=== PATIENT | female | born 1965 | race Caucasian/White ===

== ENCOUNTER 2020-08-29 10:44 | Outpatient (REF) | payer OTHER, SELFPAY ==
[2020-08-29 13:07] LABS: Hematocrit 39.2 % (37-47); Hemoglobin 13.2 g/dl (12.0-16.0); Mean Corpuscular HGB Conc 33.7 g/dl (31.0-35.0); Mean Corpuscular Hemoglobin 29.7 pg (27.0-33.0); Mean Corpuscular Volume 88.3 fL (80-98); Mean Platelet Volume 10.3 fL (9.4-12.3); Platelet Count 275 X10*3/uL (160-400); Red Blood Count 4.44 X10*6/uL (4.20-5.50); Red Cell Distribution Width 12.3 % (11.0-16.0); White Blood Count 5.4 X10*3/uL (4.8-10.8)
[2020-08-30 13:57] LABS: Immunoglobulin A 137 mg/dL (47-310)
== END 2020-08-29 10:45 | disposition home or self-care (01) ==
LOC: HO.MANLDS 10:44
PROVIDERS: PCP Internal Medicine; Visit Provider Internal Medicine
DX: J01.91 Acute recurrent sinusitis, unspecified (principal)
CPT/HCPCS: 36415; 82784; 85027

== ENCOUNTER 2020-11-02 09:39 | Outpatient (REF) | payer OTHER, SELFPAY ==
--- NOTE | ~2020-11-02 | XR_ITS ---
EXAMINATION: XR SINUSES CLINICAL INFORMATION: Chronic maxillary sinusitis COMPARISON: None TECHNIQUE: The sinuses are imaged in 4 views. FINDINGS: The right frontal sinus is hypoplastic/aplastic. The sinuses are otherwise well-aerated and clear. There is no air-fluid level, mucosal thickening, or polypoid mass. No sinus wall thickening or sclerosis or visible destructive process. Visualized nasopharynx unremarkable. XR/XR sinus min 3V IMPRESSION: Unremarkable examination.
== END 2020-11-02 09:40 | disposition home or self-care (01) ==
LOC: HO.XRAY 09:39
PROVIDERS: PCP Internal Medicine; Visit Provider Physician Assistant
DX: J32.0 Chronic maxillary sinusitis (principal)
CPT/HCPCS: 70220

== ENCOUNTER 2020-11-21 10:07 | Outpatient (REF) | payer OTHER, SELFPAY | END 2020-11-21 10:08 | disposition home or self-care (01) | LOC: HO.MANLNP 10:07 | PROVIDERS: PCP Internal Medicine; Visit Provider Internal Medicine | DX: R30.0 Dysuria (principal) | CPT/HCPCS: 87086 ==

== ENCOUNTER 2020-12-04 11:00 | Outpatient (REF) | payer OTHER, SELFPAY ==
--- NOTE | ~2020-12-04 | XR_ITS ---
EXAMINATION: XR BILATERAL HIPS WITH AP PELVIS CLINICAL INFORMATION: Bilateral hip joint pain COMPARISON: None TECHNIQUE: AP view of the pelvis and AP and frog lateral views of each hip were obtained. FINDINGS: Overall mineralization is normal. There is no fracture or dislocation. The hip joint spaces are preserved and symmetric, without arthritic change. There is a lucent lesion of bone in the right femoral metaphysis near the lesser tuberosity. This demonstrates a partially sclerotic metastases somewhat indistinct margin. No expansion or periosteal reaction is appreciated. XR/XR hips YARI min 3V IMPRESSION: Negative examination of the hips. Nonspecific bone lesion in the proximal right femoral metaphysis, possibly representing an enchondroma or bone cyst. Further evaluation by CT or MRI is recommended.
== END 2020-12-04 11:01 | disposition home or self-care (01) ==
LOC: HO.XRAY 11:00
PROVIDERS: PCP Internal Medicine; Visit Provider Internal Medicine
DX: M25.551 Pain in right hip (principal); M25.552 Pain in left hip
CPT/HCPCS: 73522

== ENCOUNTER 2021-03-01 11:21 | Outpatient (REF) | payer OTHER, SELFPAY ==
--- NOTE | ~2021-03-01 | XR_ITS ---
EXAMINATION: XR HUMERUS, RIGHT CLINICAL INFORMATION: Pain COMPARISON: None TECHNIQUE: AP and lateral views of the right humerus. FINDINGS: The bones and soft tissues are normal. No fracture. Imaged portions of the shoulder and elbow are unremarkable. XR/XR humerus RT IMPRESSION: Normal right humerus.
== END 2021-03-01 11:22 | disposition home or self-care (01) ==
LOC: HO.XRAY 11:21
PROVIDERS: PCP Internal Medicine; Visit Provider Internal Medicine
DX: M79.601 Pain in right arm (principal)
CPT/HCPCS: 73060

== ENCOUNTER 2021-11-06 14:38 | Outpatient (REF) | payer OTHER, SELFPAY ==
--- NOTE | ~2021-11-06 | CT_ITS ---
EXAMINATION: CT SINUS WITHOUT CONTRAST CLINICAL INFORMATION: Acute sinusitis. COMPARISON: None TECHNIQUE: Axial 2 mm thin and reformatted 2 mm thin sagittal and coronal images of sinuses were obtained. This CT examination was performed using dose optimization techniques as appropriate, variously including the following: *Automated exposure control *Adjustment of mA and/or kV according to patient size (this includes techniques or standardized protocols for targeted exams where dose is matched to indication/reason for exam; i.e. extremities or head) *Use of iterative reconstruction technique DLP: 100 mGy-cm FINDINGS: FRONTAL SINUSES AND DRAINAGE PATHWAYS: Normal. MAXILLARY SINUSES AND DRAINAGE PATHWAYS: Normal. The infundibula are patent. ETHMOID SINUSES: Normal. The ethmoid roofs are symmetric, with olfactory fossa depth of 0.7 cm on the right and 0.7 cm on the left. SPHENOID SINUSES AND DRAINAGE PATHWAYS: Normal. The sphenoid ostia are patent. The carotid canals are covered by bone. NASAL CAVITY/NASOPHARYNX: The nasal cavity is clear. There is mild nasal septal deviation/spurring to the left. The nasopharynx is symmetric. ADDITIONAL RELEVANT FINDINGS: No periapical disease is seen. The TMJs articulate normally. The orbits and skull base soft tissues are unremarkable. The middle ear cavities and mastoid air cells are clear. Limited evaluation demonstrates no acute intracranial findings. CT/CT sinus wo con IMPRESSION: Mild deviation of the nasal septum to the left. The nasal cavity and nasopharyngeal airway is widely patent. The paranasal sinuses are clear.
== END 2021-11-06 14:39 | disposition home or self-care (01) ==
LOC: HO.CT 14:38
PROVIDERS: PCP Internal Medicine; Visit Provider Internal Medicine
DX: J01.90 Acute sinusitis, unspecified (principal)
CPT/HCPCS: 70486

== ENCOUNTER 2022-10-07 12:11 | Outpatient (REF) | payer OTHER, SELFPAY ==
--- NOTE | ~2022-10-07 | XR_ITS ---
EXAMINATION: XR WRIST, LEFT CLINICAL INFORMATION: Tenosynovitis. Palpable lump adjacent to ulnar styloid. COMPARISON: None available. TECHNIQUE: PA, lateral, and oblique views of the left wrist. FINDINGS: The bones and soft tissues are normal. No fracture. Alignment is anatomic with normal joint spaces. No erosions or abnormal soft tissue calcifications. XR/XR wrist LT min 3V IMPRESSION: Normal left wrist.
== END 2022-10-07 12:12 | disposition home or self-care (01) ==
LOC: HO.XRAY 12:11
PROVIDERS: PCP Internal Medicine; Visit Provider Physician Assistant
DX: M65.4 Radial styloid tenosynovitis [de Quervain] (principal)
CPT/HCPCS: 73110

== ENCOUNTER 2023-07-30 07:55 | Outpatient (REF) | payer OTHER, SELFPAY ==
[2023-07-30 13:34] LABS: MANUAL DIFF FLAG NO
[2023-07-30 13:51] LABS: Basophils Percent Auto 0.5 % (0-2); Eosinophils Absolute Auto 0.1 X10*3/uL (0.0-0.4); Eosinophils Percent Auto 1.6 % (0-4); Hematocrit 40.4 % (37.0-47.0); Hemoglobin 13.3 g/dl (12.0-16.0); Imm Gran Abs Auto 0.01 X10*3/uL (0.00-0.03); Imm Gran Pct Auto 0.3 % (0.0-0.4); Lymphocytes Absolute Auto 1.3 X10*3/uL (1.2-4.9); Lymphocytes Percent Auto 33.6 % (20-40); Mean Corpuscular HGB Conc 32.9 g/dl (31.0-35.0); Mean Corpuscular Hemoglobin 29.3 pg (27.0-33.0); Monocytes Absolute Auto 0.2 X10*3/uL (0.1-1.2); Monocytes Percent Auto 5.6 % (2-11); Neutrophils Absolute Auto 2.2 x10*3/uL (2.0-8.3); Neutrophils Percent Auto 58.4 % (45-73); Platelet Count 248 X10*3/uL (160-400); Red Blood Count 4.54 X10*6/uL (4.20-5.50); Red Cell Distribution Width 12.2 % (11.0-16.0); White Blood Count 3.7 X10*3/uL (4.8-10.8)
[2023-07-30 14:20] LABS: Alanine Aminotransferase 33 U/L (0-31); Albumin Level 4.6 g/dL (3.5-5.0); Alkaline Phosphatase 67 U/L (39-117); Anion Gap 13 (12-20); Aspartate Amino Transferase 21 U/L (5-31); Bilirubin Total 0.9 mg/dL (0.0-1.0); Blood Urea Nitrogen 11 mg/dL (9-16); Calcium 9.8 mg/dL (8.4-10.2); Carbon Dioxide 28 mmol/L (22-29); Chloride 104 mmol/L (96-108); Cholesterol 202 mg/dL (<200); Estimated Glomerular Filt Rate > 60; Glucose Random 85 mg/dL (60-115); HDL Cholesterol 58 mg/dL (>40); LDL Cholesterol Calculated 118 mg/dL (<100); Potassium 3.8 mmol/L (3.3-5.1); Sodium 141 mmol/L (135-145); Triglycerides 132 mg/dL (<150)
[2023-07-30 14:35] LABS: Vitamin D 25-OH Total 34.2 ng/mL (>30)
== END 2023-07-30 07:56 | disposition home or self-care (01) ==
LOC: HO.MANLDS 07:55
PROVIDERS: Visit Provider Internal Medicine
DX: E78.00 Pure hypercholesterolemia, unspecified (principal)
CPT/HCPCS: 36415; 80053; 80061; 82306; 85025

== ENCOUNTER 2024-03-10 13:23 | Outpatient (REF) | payer OTHER, SELFPAY ==
--- NOTE | ~2024-03-10 | XR_ITS ---
EXAMINATION: XR CERVICAL SPINE CLINICAL INFORMATION: Cervalgia. COMPARISON: MRI cervical spine 07/01/2019. TECHNIQUE: AP, open-mouth, lateral radiographs of the cervical spine. FINDINGS: Lateral view demonstrates the spine from craniocervical junction to the level of T1. Vertebral body height and alignment are normal in appearance. No facet arthropathic changes are identified. Visualized lung apices are clear. Incidental note is made of focal opacification in the region of the ligamentum nuchae at the level of C4-C5. Minimal anterior endplate osteophytosis is present at C4-C5, C5-C6 and C6-C7. No intervertebral disc space narrowing or definitive vertebral joint osteophytosis noted at these levels. No prevertebral soft tissue inflammatory changes. XR/XR cervical spine 3V IMPRESSION: Mild multilevel anterior endplate osteophytosis of the cervical spine consistent with underlying degenerative disc disease. Findings are grossly commensurate with the mild multilevel chronic spondylosis visualized to better advantage on the comparison MRI of the cervical spine 07/01/2019. Electronically signed by: Marc Montgomery MD 03/25/2024 01:54 PM EDT
== END 2024-03-10 13:24 | disposition home or self-care (01) ==
LOC: HO.XRAY 13:23
PROVIDERS: PCP Internal Medicine; Visit Provider Physician Assistant
DX: M54.2 Cervicalgia (principal)
CPT/HCPCS: 72040

== ENCOUNTER 2024-05-25 14:23 | Outpatient (REF) | payer OTHER, SELFPAY ==
[2024-05-25 18:44] LABS: Thyroid Stimulating Hormone 1.78 uIU/mL (0.32-4.0)
[2024-05-27 03:08] LABS: Triiodothyronine T3 Free 2.9 pg/mL (2.3-4.2)
[2024-05-27 06:03] LABS: Thyroid Peroxidase Antibodies 1 IU/mL (<9)
== END 2024-05-25 14:24 | disposition home or self-care (01) ==
LOC: HO.MANLDS 14:23
PROVIDERS: Visit Provider Physician Assistant
DX: E06.9 Thyroiditis, unspecified (principal)
CPT/HCPCS: 36415; 84439; 84443; 84481; 86376

== ENCOUNTER 2025-01-11 12:56 | Outpatient (REF) | payer OTHER, SELFPAY ==
[2025-01-11 13:20] LABS: Appearance Urine Clear; Glucose Urine UA Negative (Negative); PH 8.0 (5.0-9.0); Specific Gravity - Urine <= 1.005 (1.005-1.025); UMIC TRIGGER UACC YES
[2025-01-11 13:40] LABS: UACC Culture Trigger YES
--- OUTSIDE RECORDS SUMMARY | 2025-01-11 13:52 | XMS_ITS | Data Portability ---
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 REVIEW OF PRIOR EXTERNAL NOTES/RESULTS, ORDERING OF TEST(S) CATEGORY 2. ASSESSMENT REQUIRING INDEPENDENT HISTORIAN(S) INCLUDE WHO THE HISTORIAN IS AND RELATION TO PT AND WHY PT IS UNABLE TO GIVE COMPLETE HISTORY ELEMENT 3: RISK (LOW) RISK OF COMPLICATIONS AND/OR MORBIDITY OR MORTALITY OF PATIENT MANAGEMENT PROVIDER MUST THOROUGHLY DOCUMENT ALL OF THE ELEMENTS COVERED Not available 11/02/2021 11:12:42 02/13/2022 02/13/2022 [id number] [place] [id number] (MORTAR WORKER) MDM MODERATE MUST MEET 2 OUT OF 3 ELEMENTS: PROBLEMS, DATA OR RISK ELEMENT 1: PROBLEMS ADDRESSED 1 OR MORE CHRONIC ILLNESS WITH EXACERBATION OR 2 OR MORE STABLE CHRONIC ILLNESSES OR 1 UNDIAGNOSED NEW PROBLEM OR 1 ACUTE ILLNESS W/SYMPTOMS OR 1 ACUTE COMPLICATED INJURY ELEMENT 2: DATA MUST MEET 1 OF 3 CATEGORIES CATEGORY 1: REVIEW OF PRIOR EXTERNAL NOTES, REVIEW OF RESULTS, ORDERING OF EACH TEST, ASSESSMENT REQUIRING INDEPENDENT HISTORIAN OR CATEGORY 2: INDEPENDENT INTERPRETATION OF TESTS BY ANOTHER PHYSICIAN OR SPECIALIST OR CATEGORY 3: DISCUSSION OF MGT OR TEST INTERPRETATION W/EXTERNAL PHYSICIAN OR SPECIALIST ELEMENT 3: RISK RISK OF COMPLICATIONS AND/OR MORBIDITY OR MORTALITY OF PATIENT MANAGEMENT PROVIDER MUST THOROUGHLY DOCUMENT EACH ELEMENT THAT IS COVERED Not available 02/13/2022 15:31:02 03/04/2022 03/04/2022 [id number] [place] [id number]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 REVIEW OF PRIOR EXTERNAL NOTES/RESULTS, ORDERING OF TEST(S) CATEGORY 2. 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 REVIEW OF PRIOR EXTERNAL NOTES/RESULTS, ORDERING OF TEST(S) CATEGORY 2. ASSESSMENT REQUIRING INDEPENDENT HISTORIAN(S) INCLUDE WHO THE HISTORIAN IS AND RELATION TO PT AND WHY PT IS UNABLE TO GIVE COMPLETE HISTORY ELEMENT 3: RISK (LOW) RISK OF COMPLICATIONS AND/OR MORBIDITY OR MORTALITY OF PATIENT MANAGEMENT PROVIDER MUST THOROUGHLY DOCUMENT ALL OF THE ELEMENTS COVERED Not available 06/03/2023 11:20:11 Plan of Treatment Reminders Order Date Submit Date Provider Last Modified By Organization Details Last Modified Time Details Appointments None recorded. Lab None recorded. Referral gastroenter ologist referral - hx of adenomatous polyps 2021 022 [email or web address] [address] [facility], [address] [facility], [place], [address], 08:40:03 Procedures None recorded. Surgeries None recorded. Imaging XR, wrist, 3 or more view 2022 023 [facility], [address] [place], [address], 3 08:31:21 CT, maxillofaci al, w/o contrast 2021 022 [facility], [address] [place], [address], 2 12:15:18 Medication Orders valacyclovi r 1 gram tablet 2021 022 [email or web address] [id number], [address] [place], [address], 4 18:29:29 Savella 12.5 mg (5)-25 mg(8)-50mg( 42) tablets in a dose pack 2021 022 SURINDER [id number], [address] [place], [address], 2 15:31:05 prednisone 20 mg tablet 2021 022 [id number], [address] [place], [address], 2 13:49:52 doxycycline hyclate 100 mg tablet 2021 022 [email or web address] [id number], [address] [place], [address], 2 14:20:00 Patient TargetsNo targets recorded. Patient Instructions Encounter Date Encounter Id Patient Instructions Last Modified By Organization Details Last Modified Time 11/02/2021 [id number] Acute Sinusitis: Care Instructions Not available 11/02/2021 11:15:12 03/04/2022 [id number] shingles: care instructions Not available 03/04/2022 11:19:38 Reason for Referral Brand Advocate Referral for Screening for malignant neoplasm of colon hx of adenomatous polyps Referring Physician: Demar Summers, Internal Medicine, Encounter Date: 02/13/2022 Results Created Date Observation Date Name Description Value Unit Range Abnormal Flag Note LastModifiedBy Organization Detail LastModifiedTime 11/08/1911/06/2021 CT, maxil lofac ial, w/o contr ast No observ ation record ed. [facility] (Medical Records) [address] [place], [address], 11/09/2021 10:03:59 10/15/19 23 10/07/2022 XR, wrist , 3 or more view No observ ation record ed. [email or web address] [facility] (Medical Records) [address] [place], [address], 10/15/2022 11:34:26 03/25/20 24 03/10/2024 XR, cervi grady spine , 2 or 3 view No observ [facility]ion [facility] ed. [facility] [address] [place], [address], 03/26/2024 08:46:20 06/04/20 24 06/04/2024 US, neck, soft tissu e No observ ation record ed. [facility] [address], [place], [address], 06/04/2024 08:51:25 06/17/20 24 06/17/2024 US, neck, soft tissu e No observ ation record ed. [facility] [address], [place], [address], 06/17/2024 13:38:45 10/07/19 25 10/04/2024 CT, heart , w/o contr ast, w/ coron haylie calci um score No observ ation record ed. [facility] [address] [facility] [address], [place], [address], 10/07/2024 20:34:57 Result Notes None recorded. Problems Name Problem SNOMED Code Status Onset Date Resolution Date Notes Provider Name and Address Organization Details Recorded Time Environme ntal allergy 374764691 Active 2018 Demar Summers DO [address] [place] [address], [address], [facility] 9 12:20:23 Congestio n of nasal sinus 14123459 Active 2021 Demar Summers DO [address] [place] [address], [address], [facility] 2 11:12:52 Acute sinusitis 02064428 Active 2021 Demar Summers DO [address] [place] [address], [address], [facility] 2 11:13:10 Conjuncti vitis of right eye caused by bacteria 677806618485 10175 Active 2021 Demar Summers DO [address] [place] [address], [address], [facility] 2 08:42:55 Hyperchol esterolem ia 56318201 Active 2021 Demar Summers DO [address] [place] [address], [address], [facility] 2 13:50:08 Pain of multiple joints 08157176 Active 2021 Demar Summers DO [address] [place] [address], [address], [facility] 2 09:03:05 Osteoarth ritis of knee 069689782 Active 2021 Demar Summers DO [address] [place] [address], [address], [facility] 2 09:03:21 Primary fibromyal allen syndrome 84643528 Active 2021 Demar Summers DO [address] [place] [address], [address], [facility] 2 15:23:18 Pain of bilateral hip joints 590690153687 81452 Active 2021 Demar Summers DO [address] [place] [address], [address], [facility] 2 15:23:29 Trochante renata bursitis of right hip 140681639071 100 Active 2021 Demar Summers DO [address] [place] [address], [address], [facility] 2 15:23:39 Bilateral wrist pain 530349600904 01361 Active 2021 Demar Summers DO [address] [place] [address], [address], [facility] 2 15:26:48 Bilateral elbow joint pain 991535042406 07640 Active 2021 Demar Summers DO [address] [place] [address], [address], [facility] 2 15:27:15 Fibromyal allen 013424233 Active 2021 Demar Summers DO [address] [place] [address], [address], [facility] 2 16:48:53 Herpes zoster 0062110 Active 2021 Demar Summers DO [address] [place] [address], [address], [facility] 2 11:18:49 Paronychi a of finger 782548175 Active 2021 LAURIE MERCEDES [address] [place] [address], [address], [facility] 2 17:06:31 Anxiety 18707856 Active 2021 LAURIE MERCEDES [address] [place] [address], [address], [facility] 2 17:31:20 Onychomyc osis due to dermatoph yte 028959192 Active 2021 LAURIE MERCEDES [address] [place] [address], [address], [facility] 2 11:03:44 Blister 038617213 Active 2021 LAURIE MERCEDES [address] [place] [address], [address], [facility] 2 11:04:23 Nausea 261973180 Active 2022 LAURIE MERCEDES [address] [place] [address], [address], [facility] 3 13:29:58 Viral gastroent eritis 149790850 Active 2022 Demar Summers, DO [address] [place] [address], [address], [facility] 3 20:31:39 Mass of wrist joint 042176867 Active 2022 Demar Summers, DO [address] [place] [address], [address], [facility] 3 08:56:10 Tenosynov itis of left radial styloid 077662974752 68113 Active 2022 LAURIE MERCEDES [address] [place] [address], [address], [facility] 3 10:42:21 Acute pharyngit is 734559424 Active 2022 LAURIE MERCEDES [address] [place] [address], [address], [facility] 3 12:05:08 Acute otitis media 0758511 Active 2022 LAURIE MERCEDES [address] [place] [address], [address], [facility] 3 17:45:36 Bacterial conjuncti vitis 795740247 Active 2022 LAURIE MERCEDES [address] [place] [address], [address], [facility] 3 12:46:57 Basal cell carcinoma recurrent following Mohs' excision 250138593 Active 2022 LAURIE MERCEDES [address] [place] [address], [address], [facility] 3 14:18:29 Allergic rhinitis 18370461 Active 2022 LAURIE MERCEDES [address] [place] [address], [address], [facility] 3 09:22:24 Injury of tendon of the rotator cuff of shoulder 883930275 Active 2022 Demar Summers DO [address] [place] [address], [address], [facility] 3 11:20:56 Acute bronchiti s 02711887 Active 2023 LAURIE MERCEDES [address] [place] [address], [address], [facility] 4 13:21:55 Pain of left shoulder joint 090540742314 61647 Active 2023 Demar Summers DO [address] [place] [address], [address], [facility] 4 08:53:25 Pain of left elbow joint 944669714571 85102 Active 2023 Demar Summers DO [address] [place] [address], [address], [facility] 4 08:57:11 Neck pain 61517250 Active 2023 LAURIE MERCEDES [address] [place] [address], [address], [facility] 4 15:26:48 Cervical radiculop athy 94088790 Active 2023 LAURIE MERCEDES [address] [place] [address], [address], [facility] 4 15:34:56 Thyroidit is 67896746 Active 2023 LAURIE MERCEDES [address] [place] [address], [address], [facility] 4 14:08:18 Mass of neck 075215006 Active 2023 LAURIE MERCEDES [address] [place] [address], [address], [facility] 4 15:47:38 Thyroid nodule 571667139 Active 2023 LAURIE MERCEDES [address] [place] [address], [address], [facility] 4 13:43:04 Hyperlipi demia 74361349 Active 2024 Demar Summers DO [address] [place] [address], [address], [facility] 5 08:50:49 Folliculi tis 28788740 Active 2024 Demar Summers DO [address] [place] [address], [address], [facility] 5 08:26:20 Paronychi a of finger of left hand 691833493389 58615 Active 2024 Demar Summers DO [address] [place] [address], [address], [facility] 5 10:01:22 Acute non-suppu rative serous otitis media 683111914 Active 2024 LAURIE MERCEDES [address] [place] [address], [address], [facility] 5 13:21:45 Acute urinary tract infection 977410813 Active 2024 LAURIE MERCEDES [address] [place] [address], [address], [facility] 5 08:34:12 Problem Notes None recorded. Procedures Surgical History Date Name Laterality Status Provider Name and Address Organization Details Recorded Time 023 Corticosteroid Injection completed Demar Summers, [address] [facility], [place], [address], [facility] 06/03/2023 11:20:00 019 I&D completed October DUSTIN Payan [address] [place], [address], [facility] 06/22/2019 09:43:34 Imaging Results None recorded. Procedure Notes None recorded. Medical Equipment None Reported. Allergies Allergen ID Allergen Name Allergen Category Reaction Reaction Severity Criticality Documentation Date Start Date Code Code System Note Provider Name and Address Organization Details Recorded Time 1461 acetamino phen / oxycodone medicatio n Not available Not available Not available 12/09/2017 63877 3 RxNorm Sri Johnson [facility] 8 11:36:20 Medications Name Sig Start Date Stop Date Status Note LastModified by Organization Details LastModified Time amoxicillin 500 mg capsule 03/13 completed Not Available Not Available Not Available silver sulfadiazin e 1 % topical cream APPLY A 1/16 INCH (1.5 MM) THICK LAYER TO ENTIRE BURN AREA BY TOPICALRO [place] 2 TIMES PER DAY 12/06 completed Not Available Not Available Not Available prednisone 10 mg tablet 4 TABS EVERY DAY X 3 DAYS 3 TABS X 3 DAYS 2 TABS EVERY DAY X 3 DAYS 1 TAB X3 DAYS 03/29 completed Not Available Not Available Not Available doxycycline hyclate 100 mg capsule TAKE 1 CAPSULE BY MOUTH TWICE DAILY X 5 DAYS WITH FOOD AND A GLASS OF WATER. 11/04 completed Not Available Not Available Not Available atorvastati n 20 mg tablet Take 1 tablet every day by oral route. 09/08 completed Not Available Not Available Not Available clindamycin HCl 300 mg capsule Take 1 capsule every 6 hours by oral route for 6 days. 03/13 completed Not Available Not Available Not Available atorvastati n 10 mg tablet TAKE 1 TABLET BY MOUTH EVERY DAY 09/06 completed Not Available Not Available Not Available azithromyci n 250 mg tablet TAKE 2 TABLETS BY MOUTH TODAY, THEN TAKE 1 TABLET DAILY FOR 4 DAYS DIRECTED 11/04 completed Not Available Not Available Not Available benzonatate 200 mg capsule Take 1 capsule 3 times a day by oral route for 7 days. 10/05 completed Not Available Not Available Not Available valacyclovi r 1 gram tablet TAKE 1 TABLET BY MOUTH EVERY 12 HOURS FOR 7 DAYS 11/04 completed Not Available Not Available Not Available hydrocodone 5 mg-acetamin ophen 325 mg tablet TAKE 1 TABLET BY MOUTH EVERY 4 HOURS NEEDED FOR PAIN FOR UP TO 5 DAYS. 09/28 completed Not Available Not Available Not Available meloxicam 15 mg tablet TAKE 1 TABLET BY MOUTH EVERY DAY 10/05 completed Not Available Not Available Not Available phenazopyri dine 200 mg tablet Take 1 tablet 3 times a day by oral route as needed for 7 days. 2024 active Not Available Not Available Not Avai lable prednisone 20 mg tablet Take 1 tablet every day by oral route for 7 days. 01/16 completed Not Available Not Available Not Available alendronate 70 mg tablet Take 1 tablet every week by oral route for 30 days. 08/23 completed Not Available Not Available Not Available clonazepam 1 mg tablet TAKE 1 TABLET BY MOUTH THREE TIMES A DAY NEEDED active Not Available Not Available No t Available ciprofloxac in 500 mg tablet TAKE 1 TABLET BY MOUTH EVERY 12 HOURS FOR 10 DAYS 12/06 completed Not Available Not Available Not Available sulfamethox azole 800 mg-trimetho prim 160 mg tablet Take 1 tablet every 12 hours by oral route for 7 days. 2024 active Not Available Not Available Not Avai lable aspirin 81 mg tablet,nieves yed release TAKE 1 TABLET BY MOUTH 2 TIMES A DAY. active Not Available Not Available No t Available tramadol 50 mg tablet TAKE 1 TABLET BY MOUTH EVERY 6 HOURS NEEDED FOR 7 DAYS 11/04 completed Not Available Not Available Not Available ondansetron 8 mg disintegrat ing tablet PLACE 1 TABLET TWICE A DAY BY TRANSLING UAL ROUTE NEEDED FOR 7 DAYS 12/06 completed Not Available Not Available Not Available alprazolam 0.5 mg tablet TAKE 1 TABLET BY MOUTH THREE TIMES A DAY NEEDED FOR 5 DAYS 11/04 completed Not Available Not Available Not Available amoxicillin 875 mg tablet TAKE 1 TABLET BY MOUTH EVERY 12 HOURS FOR 10 DAYS 12/06 completed Not Available Not Available Not Available citalopram 20 mg tablet TAKE 1 TABLET BY MOUTH EVERY DAY 03/13 completed Not Available Not Available Not Available gentamicin 0.3 % eye drops INSTILL 1 DROP INTO AFFECTED EYE(S) 4-5 times a day 09/29 completed Not Available Not Available Not Available benzonatate 100 mg capsule Take 1 capsule 3 times a day by oral route as needed. 10/05 completed Not Available Not Available Not Available erythromyci n 5 mg/gram (0.5 %) eye ointment APPLY 1 CM RIBBON INTO THE LOWER CONJUNCTI DESIRAE SAC(S) IN THE AFFECTED EYE(S) 3 TIMES PER DAY 03/29 completed Not Available Not Available Not Available nitrofurant oin macrocrysta l 100 mg capsule TAKE 1 CAPSULE BY MOUTH TWICE A DAY FOR 7 DAYS 08/23 completed Not Available Not Available Not Available dexamethaso ne 4 mg tablet Take 1 tablet twice a day by oral route for 7 days. 03/13 completed Not Available Not Available Not Available diclofenac sodium 75 mg tablet,nieves yed release Take 1 tablet twice a day by oral route for 10 days. 06/09 completed Not Available Not Available Not Available montelukast 10 mg tablet TAKE 1 TABLET BY MOUTH EVERY DAY 2023 active Not Available Not Available Not Avai lable mupirocin 2 % topical ointment APPLY A SMALL AMOUNT TO AFFECTED AREA 3 TIMES A DAY active Not Available Not Available No t Available diclofenac sodium 50 mg tablet,nieves yed release TAKE 1 TABLET BY MOUTH TWICE A DAY WITH MEALS 03/13 completed Not Available Not Available Not Available Levaquin 500 mg tablet Take 1 tablet every 24 hours by oral route. 09/29 completed Not Available Not Available Not Available gabapentin 100 mg capsule TAKE 1 CAPSULE BY MOUTH THREE TIMES A DAY FOR 30 DAYS 12/06 completed Not Available Not Available Not Available epinephrine 0.3 mg/0.3 mL injection, auto-inject or Use as directed. active Not Available Not Available No t Available methylpredn isolone 4 mg tablets in a dose pack TAKE 6 TABLETS ON DAY 1 DIRECTED ON PACKAGE AND DECREASE BY 1 TAB EACH DAY FOR A TOTAL OF 6 DAYS active Not Available Not Available No t Available gentamicin 0.3 % (3 mg/gram) eye ointment APPLY A SMALL AMOUNT (1/2 INCH) TO THE LOWER LID OF THE AFFECTED EYE(S) BY OPHTHALMI C ROUTE 3 TIMES PER DAY 01/27 completed Not Available Not Available Not Available Cipro 250 mg tablet Take 1 tablet every 12 hours by oral route for 5 days. 12/20 completed Not Available Not Available Not Available ketoconazol e 2 % topical cream APPLY TO THE AFFECTED AREA(S) BY TOPICAL ROUTE ONCE DAILY 12/06 completed Not Available Not Available Not Available clobetasol 0.05 % scalp solution APPLY TO THE AFFECTED SCALP AREA BY TOPICAL ROUTE 2 TIMES PER DAY IN THE MORNING AND EVENING 12/06 completed Not Available Not Available Not Available ondansetron 4 mg disintegrat ing tablet DISSOLVE 1 TABLET IN THE MOUTH EVERY 8 HOURS NEEDED FOR NAUSEA OR VOMITING. 09/28 completed Not Available Not Available Not Available cefdinir 300 mg capsule TAKE 1 CAPSULE BY MOUTH EVERY 12 HOURS FOR 10 DAYS 03/13 completed Not Available Not Available Not Available metronidazo le 0.75 % topical gel APPLY A THIN LAYER TO THE AFFECTED AREA(S) BY TOPICAL ROUTE 2 TIMES PER DAY IN THE MORNING AND EVENING active Not Available Not Available No t Available doxycycline hyclate 100 mg tablet Take 1 tablet twice a day by oral route for 10 days. 01/04 completed Not Available Not Available Not Available amoxicillin 875 mg-potassiu m clavulanate 125 mg tablet TAKE 1 TABLET BY MOUTH EVERY 12 HOURS FOR 10 DAYS 03/29 completed Not Available Not Available Not Available oxycodone 5 mg tablet TAKE 1 TAB BY MOUTH EVERY 4 HOURS NEEDED FOR BREAKTHRO UGH PAIN FOR UP TO 5 DAYS MAX 30 MG DAILY active Not Available Not Available No t Available TobraDex 0.3 %-0.1 % eye drops,suspe nsion INSTILL 1 DROP INTO AFFECTED EYE(S) BY OPHTHALMI C ROUTE EVERY 6 HOURS 01/27 completed Not Available Not Available Not Available rosuvastati n 5 mg tablet TAKE 1 TABLET BY MOUTH EVERY DAY active Not Available Not Available No t Available nitrofurant oin monohydrate /macrocryst als 100 mg capsule Take 1 capsule every 12 hours by oral route with meals for 7 days. 12/20 completed Not Available Not Available Not Available Savella 12.5 mg (5)-25 mg(8)-50mg( 42) tablets in a dose pack Take by oral route for 30 days. 2021 active Not Available Not Available Not Avai lable Zyrtec 10 mg capsule Take by oral route. active Not Available Not Available No t Available Proctosol HC 2.5 % topical cream perineal applicator APPLY A THIN LAYER TO THE AFFECTED AREA(S) BY TOPICAL ROUTE BID 03/13 completed Not Available Not Available Not Available Vitals Date Recorded Heart rate Oxygen saturation Oxygen saturation in Arterial blood by Pulse oximetry Systolic blood pressure Diastolic blood pressure Provider Name and Address Organization Details Last Updated DateTime 2 76 /min 98 % 98 % 126 mm[Hg] 64 mm[Hg] Demar Summers, DO [address] [place], [address] [place] [address] Internal Medicine 2 15:14:21 Social History Question Answer Notes LastModified by Organizat ion Details LastModified Time Tobacco Smoking Status Former Smoker Sri Johnson [facility] Medicine 12/09/2017 11:37:36 Do You Have An Advance Directive? No Information not available 10/24/2020 What Is Your Level Of Caffeine Consumption? Moderate Information not available 10/24/2020 Are There Any Guns Present In Your Home? No Information not available 10/24/2020 What Was The Date Of Your Most Recent Tobacco Screening? 02/13/2022 Information not available 02/13/2022 How Many Children Do You Have? 1 Information not available 10/24/2020 Performs Monthly Self-breast Exam? Yes Information not available 10/24/2020 Seat Belts Used Routinely Yes Information not available 10/24/2020 Are You Sexually Active? Yes Information not available 10/24/2020 Smoke Alarm In Home Yes Information not available 10/24/2020 Do You Use Sunscreen Routinely? Yes Information not available 10/24/2020 Sex: Female Functional Status Question Answer Note LastModified by Organizat ion Details LastModified Time What is your level of alcohol consumption? Occasional Information not available 10/24/2020 Are you able to walk? 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 Occasional Information not available 10/24/2020 Mental Status None recorded. Family History Relationship Description Onset Age of this Age Resolved Age Notes LastModified by Organization Details LastModified Time Sister Diabetes mellitus 41 pgwinner Not available 2020 13:51:49 Medical History No medical history recorded. Gynecological HistoryNo gynecological history recorded. Obstetrics History GPAL:G 0 P 0 0 0 0 Immunizations Vaccine Type Date Status Note Provider Nam e and Address Organization Details Recorded Time Influenza, split virus, quadrivalent, preservative 1 completed Manuel schultz [facility] 05/18/2021 14:05:24 influenza, unspecified formulation 3 completed Manuel schultz [facility] 03/12/2023 10:49:06 Influenza, [place] 4 completed Manuel schultz [facility] 05/14/2024 14:03:16 Influenza, split virus, quadrivalent, preservative 9 completed Manuel schultz [facility] 04/28/2019 12:29:41 COVID-19, mRNA, LNP-S, PF, 30 mcg/0.3 mL dose 1 completed Sophie schultz [facility] 10/25/2020 16:24:13 COVID-19, mRNA, LNP-S, PF, 30 mcg/0.3 mL dose 1 completed Ca schultz [facility] 11/01/2020 09:06:02 Past Encounters Encounter ID Performer Location Encounter Start Date Encounter Closed Date Diagnosis/Indication Diagnosis SNOMED-CT Code Diagnosis ICD10 Code Diagnosis Note [id number] Demar Summers [facility] [address] [facility],[place] [address] 12/09/2017 10:33:24 12/09/2017 12:11:21 Acute low back pain 951632311 M54.5 progressiv e sciatica type symptoms with worsening radiculopa thy including loss of DTR and limb muscle weakening and parasthesi a [place] SAME [id number] [facility] [address],[place] [address] 06/01/2018 09:47:50 06/01/2018 11:58:07 Pneumonia 969451218 J18.9 zvak [id number] [address] [address] 08/25/2018 09:44:02 08/25/2018 10:18:50 Low back pain 726670007 M54.5 [id number] [facility] [address] [address] 04/20/2019 11:03:10 04/20/2019 11:46:10 Low back pain 315014848 M54.5 [id number] [facility] [address] [address] 06/09/2019 12:10:00 06/15/2019 10:32:16 Degeneration of lumbosacral intervertebral disc 69578200 M51.37 will need xrays of both the SI and LS spines will need to MRI this area Neck pain 30866829 M54.2 [id number] Demar Summers [facility] [address] [address] 06/22/2019 08:54:20 06/22/2019 09:56:21 Justine incarnati 1109922 L73.1 Abscess 627705593 L02.91 abscessed follicle 2/2 ingrown hair no signs of cellulitis hair was removed during procedure monitor for signs of infection [id number] Demar Summers [facility] [address], [place] [address] 12/21/2019 13:30:25 12/21/2019 14:08:17 Osteopenia 896101180 M85.80 will order bmd Chronic ur inary tract infection 489634072 N39.0 Lateral ep icondylitis of left humerus 4950148354 61695 M77.12 Pain of mu ltiple joints 63340543 M25.50 [id number] Demar Summers [facility] [address] [place] [address],[place] [address] 05/03/2020 10:30:31 05/03/2020 14:38:39 Postmenopausal osteopenia 915705724 M85.80 [id number] Demar Summers [facility] [address] [address] 11/01/2020 13:39:00 11/01/2020 14:33:47 Allergic rhinitis 94196953 J30.2 will continue on same medication regimine and fu with XR of her sinuses will try to go forward with another CT after getting XR results Chronic re current sinusitis 387237089 J32.0 will fu with XR results [id number] Demar Summers [facility] [address] [place] [address],[place] [address] 11/21/2020 08:10:22 11/21/2020 11:54:02 Dysuria 46270133 R30.0 [id number] Demar Summers [facility] [address] [place] [address],[place] [address] 12/06/2020 09:01:15 12/06/2020 09:14:34 Lumbago-sciatica due to displacement of lumbar intervertebral disc 68070412 M51.17 has left leg weakness fairly severe and unco mfortable [id number] Demar Summers [facility] [address] [place] [address],[place] [address] 11/02/2021 11:05:26 11/02/2021 11:50:13 Acute sinusitis 97396105 J01.90 worsening symptoms and despite treatment [id number] Demar Summers DO [facility] [address] [place] [address] 02/13/2022 14:52:22 02/13/2022 15:34:24 Active or passive immunization 414170551 Z23 advised patient due for Tdap Primary fi bromyalgia syndrome 94858991 M79.7 wondering if a lot of her symptoms match the diagnostic criteriano t sure if the screening lab is a viable test Pain of bi lateral hip joints 1694913842 7396404 M25.551 M25.552 xrays ordered Trochanter ic bursitis of right hip 5107723767 53260 M70.61 Bilateral elbow joint pain 4545780289 6049183 M25.521 M25.522 Bilateral wrist pain 462 3493518 6077530 M25.531 M25.532 same joints bilat right > left Screening for malignant neoplasm of colon 230904141 Z12.11 [id number] Demar Summers [facility] [address] [facility],[place] [address] 03/04/2022 11:14:52 03/04/2022 11:30:15 Herpes zoster 2932420 B02.9 will need to treat [id number] Demar Summers [facility] [address] [place] [address] 09/25/2022 15:50:32 09/25/2022 17:06:38 Tenosynovitis of left radial styloid 4357878265 6417651 M65.4 will set up with XRwill attach note to see Dr. Morrissey [id number] Demar Summers [facility] [address] [place] [address] 06/03/2023 11:18:44 06/03/2023 11:23:49 Injury of tendon of the rotator cuff of shoulder 950877015 S46.002A danny inj well tolerated Health Concerns Section Related Observation LastModified by Organization Detai ls LastModified Time None Recorded Concern Status LastModified by Organization Details LastModified Time None Recorded Advance Directives Directive N: Payers Insurance Date Sequence Insurance Name Policy Number Policy Packer Covered Member ID Packer Member ID Guarantor Name 05/31/2019 1 MEDICAID-ID - [facility] PRIOR TO 10/12/2022 - [facility] (MEDICAID) Marcela Church [id number] Marcela Kruger 11/30/[address] [facility] [id number] Farhad Kruger [id number] Marcela Kruger Notes Date Note Type Note Provider Name a nd Address Organization Details Recorded Time 2 text/html here for eval of her ongoing pain and sinus congestionstill having intermittent vertigo as wellstill having facial painfebrile sensations Demar Summers, [address] [place] [address], [address], [facility] 11/02/2021 11:17:22 2 text/html here for eval of diffuse arthralgia and myalgiaongoing for years and may be acceleratingwe reviewed some of her past evals including MRI and xrayshas known deg disc ds of her spinesore all day longesp in muscle bed in her axial skeletonwe have ordered xrays to start will prop need further xr and MRI to fully eval as well as fu lab given the possibility of fibromyalgia we will go ahead and has had 2 inj for troch bursitis but never followed up with PT ordered Demar Summers, [address] [place], [address], [facility] 02/13/2022 15:33:54 2 text/html not feeling well feeels off and has a new rash developing on her left shoulderstates that her skin feels creepy crawly and starting to burn at the area Demar Summers DO [address] [place], [address], [facility] 03/04/2022 11:20:16 3 text/html c/o left wrist pain patient presents today for an evaluation of continuous left wrist painthe pain is currently wearing a soft brace (carpal tunnel wrist brace)the patient reports pain with palpation to the affected area (most likely the flexor carpi ulnaris)with numbness into the fourth and fifth digits intermittentlyno pain with supination, pronation, strength is intact patient right hand dominantpain occurs with adduction and flexionno loss of ROM, but does endorse pain with these maneuvers she also has swelling and tenderness around the distal ulna as well median nerve compression (tinel) testing was negativenegative phalen test does have a history of cervical spine degenerative disc disease (most prominently at C4 to C5 and C5 to C6); last XR was some years ago patient works as an general office clerk twice week, most of her job is on the computer which worsens her painalso if she rest the weight of her arm on her cubital tunnel and ulnar nerve it is uncomfortable with numbness into the fourth and fifth digit ddx tendinitis, arthritis, ulnar nerve entrapment syndrome, cervical radiculopathy LAURIE MERCEDES [address] [place], [address], [facility] 09/30/2022 10:43:27 3 text/html ongoing pain in her left shoulder that has been prgressively worsehurts for reaching and moving in certain waylat abduct is particularily badno injury Demar Summers DO [address] [facility], [place], [address], [place] [facility] 06/03/2023 11:22:49 OBGyn Episode No OBEpisode recorded.
--- OUTSIDE RECORDS SUMMARY | 2025-01-11 13:52 | XMS_ITS | Encounter Summary ---
Author Organization [facility] Address [address] [place] [address] Care Team Providers Care Volunteer Services Director Name Role Phone LenoDemar colon Primary Care Provider [phone] Encounter Details Date Type Department Care Team (Late st Contact Info) Description 08/19/2024 Youxiduohart Message [facility] Financial Clearance Department [address] [place] [address] Mychart, Generic Provider [address] [place], [place] [id number] approval for medication Social History Tobacco Use Types Packs/Day Years Used Date Smoking Tobacco: Former Cigarettes Smokeless Tobacco: Never Comments:Smoked for 5+ years in the Alcohol Use Standard Drinks/Week Comments Yes 1 (1 standard drink = 0.6 oz pur e alcohol) socially Comments Unknown Sex and Gender Information Value Date Recorded Sex Assigned at Female 11/01/2022 10:23 AM EDT Legal Sex Female 9:27 AM EDT Gender Identity Female 11/01/2022 10:23 AM EDT Sexual Orientation Choose not to disclose 2022 10:23 AM EDT Occupation Industry Job Start Date Job End Date [employer] Food [employer] Not on file Not on file Not on file documented as of this encounter Plan of Treatment Not on file documented as of this encounter Visit Diagnoses Not on filedocumented in this encounter Care Teams Volunteer Services Director Relationship Specialty Start Date End Date Demar Summers [address] [place] [address] PCP - General Internal Medicine 01/05/21 documented as of this encounter
== END 2025-01-11 12:57 | disposition home or self-care (01) ==
LOC: HO.MANLNP 12:56
PROVIDERS: Visit Provider Physician Assistant
DX: R30.0 Dysuria (principal)
CPT/HCPCS: 81001; 81003; 87086